=== PATIENT | male | born 1970 | race Caucasian/White ===

== ENCOUNTER 2017-12-01 22:54 | Emergency (ER) | payer SELFPAY ==
[2017-12-01 22:54] VITALS: BP 145/91; PULSE 100; RESP 18; TEMP 36.6; O2SAT 97; BMI 27.8
--- NOTE | 2017-12-01 23:07 | RAD_ITS ---
STUDY: X-RAY - RIGHT FOOT CLINICAL: Male, 47 years old. Fall, foot pain. TECHNIQUE: 3. view(s) of the foot. COMPARISON: None. FINDINGS: There is a comminuted, intra-articular fracture of the calcaneus extending to the superior articular surface. There is probable fracture line extending to the anterior articular surface (calcaneocuboid articulation). Fracture lines extend to the posterior and inferior calcaneal surfaces. Minimum of 4 fragments. There is flattening of Boehler's angle. Normal talus. Normal visualized talonavicular, tarsal and tarsometatarsal articulations. Normal metatarsi. Normal metatarsophalangeal joint of the great toe. Normal tibial and fibular sesamoid bones. Normal interphalangeal joint of the great toe. Normal phalanges of the great toe. Normal second through fifth metatarsophalangeal joints. Normal interphalangeal joints and phalanges of the lesser toes. The soft tissue structures are unremarkable. RAD/Foot min 3 Views IMPRESSION: 1. Comminuted calcaneal fracture. Consider CT of the calcaneus for detailed evaluation, as indicated by Orthopedics. Electronically Signed: Yoli Damian MD at 23:34 EDT Tel , Service support ,
--- NOTE | 2017-12-01 23:08 | ED.VISSUMM ---
- ER Visit Summary Date of Service: 12/01/17 Chief Complaint: Right lower extremity injury History of Present Illness: The patient is a 47 M patient strapping down kayak from [facility] when he lost his balance jumping down. States he is probably 6 feet up on the roof. Inversion injury to right lower extremity. No head injuries. But is drinking 4 beers. States maybe had a finger fracture in the past. No current PCP. No past medical history. Patient states unable to bear weight since incident. Physical Examination: General: Alert and oriented ?3, moderate distress HEENT: Normocephalic, atraumatic. Moist mucosa membranes Neck: supple, nontender. Cardiovascular: Regular rate and rhythm, no murmurs Respiratory: Normal breath sounds, symmetric, no distress Back: No midline back pain. Abdomen: Soft, nontender, nondistended Extremities: Right lower extremity: No knee tenderness. No medial malleolus tenderness. Swelling and tenderness lateral malleolus. Also swelling distal to the lateral malleolus. Skin is intact. No midfoot or proximal fifth base tenderness. No calcaneal heel tenderness. DP intact. Cap refill is intact. Decreased sensation dorsum of the foot with palpation per patient. Neuro: no focal neurological deficits. Test Results: Right ankle and foot x-ray: Comminuted calcaneal fracture. CT scan right lower extremity pending final read comminuted calcaneal fracture. CBC, BMP, coags pending. Emergency Department Course and Treatment: Patient declined IM or subcu medications initially. He is given 10 mg oxycodone and ice. X-ray confirms a comminuted calcaneal fracture. Reevaluation agreed with morphine subcu which 10 mg were given. I spoke with orthopedic on-call Dr. Murphy Coe, agreed with obtaining a CT scan and plan follow-up as an outpatient for likely referral to specialist for surgery since he does not perform this. Family has seen him in the past therefore requested him. This explained to the patient. After return from CT continued complaint of pain. Posterior splint was placed. However he pain has been persistent. IV place with labs drawn. Order for Dilaudid and Toradol. Re-spoke with orthopedic surgeon, states there is possibility of development of compartment syndrome in this area, he does not perform surgeries for this area. Discussed with family who would like to go to [facility]. I spoke with ED physician who up dated and accepts the transfer. Image studies will be sent with the patient. He will go to the emergency department. Family updated. He has no back pain for concerns of compression fractures in this area. Treatment Plan: [] Disposition: Transfer Impression: 1. Right calcaneal fracture closed 2. Intractable pain This note was generated with [employer] dictation software. It may contain incorrect words, spelling, and punctuation that were not noted in review of the chart prior to signing ED Disposition - Plan for ED Patient: Disposition: [facility] Chief Complaint: Lower Extremity Injury Diagnosis: Closed right calcaneal fracture, Intractable pain
[2017-12-01] MEDS: oxyCODONE 5 MG Tablet 10 MG PO (23:11)
--- NOTE | 2017-12-01 23:15 | RAD_ITS ---
STUDY: X-RAY - RIGHT ANKLE REASON FOR EXAM: Male, 47 years old. Fall, right foot pain. TECHNIQUE: 3 view(s) of the ankle. COMPARISON: None. FINDINGS: There is a comminuted, intra-articular fracture of the calcaneus extending to the superior articular surface. Fracture lines extend to the posterior and inferior calcaneal surfaces, with possible fracture line extending to the anterior articular surface. Tibiotalar and talofibular joints are intact. Talonavicular articulation is intact. The midfoot is otherwise unremarkable. Soft tissues are unremarkable. RAD/Ankle min 3 Views IMPRESSION: Comminuted calcaneal fracture. Electronically Signed: Yoli Damian MD at 23:30 EDT Tel , Service support ,
--- NOTE | 2017-12-01 23:53 | CT_ITS ---
STUDY: CT RIGHT FOOT REASON FOR EXAM: Male, 47 years old. Fall, calcaneal fracture RADIATION DOSAGE (If Supplied By Facility): CTDIvol = ( 15.35 ) mGy, DLP = ( 330.74 ) mGycm TECHNIQUE: Thin section transaxial imaging of the foot was obtained, with sagittal and coronal reconstructed images. Individualized dose optimization techniques were used for this CT. COMPARISON: Right foot films 12/01/2017 FINDINGS: Intact distal tibia-fibula/medial lateral malleolus. Intact talus dome and talus, cuboid, navicular and cuneiforms. Intact tarsometatarsal articulation.. Comminuted impacted fractures of the calcaneus involving the sustentaculum melba, lateral and posterior tuberosities, nondisplaced fracture through the calcaneal cuboid process. There is adjacent soft tissue swelling. CT/Extremity Lower without Contra IMPRESSION: Acute comminuted fracture of the calcaneus as above. Electronically Signed: Caren Thompson MD at 1:11 EDT , Service support ,
[2017-12-02] MEDS: morphine 10 MG/ML Syringe SC (00:04)
[2017-12-02] MEDS: Ketorolac 30 MG/ML Syringe IV (00:54)
[2017-12-02 01:19] LABS: Absolute Lymphocyte Count 3.22 X10^3/ul (0.83-4.51); Basophil# 0.12 X10^3/uL; Basophil% 0.7 % (0-1); Eosinophils% 1.7 % (0-5); Hematocrit 39.7 % (40-54); Hemoglobin 13.8 g/dl (13.0-16.5); Lymphocyte # 3.22 X10^3/ul (4.0); Lymphocyte % 17.8 % (19-41); Mean Corp Hgb Conc 34.8 g/gl (32-36); Mean Corpuscular Hgb 31.3 pg (27.0-32.0); Mean Platelet Vol. 10.6 fl (6.2-12.0); Monocyte% 7.7 % (0-10); Neutrophil # 12.98 X10^3/uL (2.7-7.7); Neutrophil % 71.6 % (47-70); Platelet Count 295 K/mm3 (150-450); RBC Distribution Width CV 12.6 % (11.6-14.6); RBC Distribution Width SD 41.2 fl (35.1-43.9); Red Blood Count 4.41 M/mm3 (4.6-6.2); White Blood Count 18.1 K/mm3 (4.4-11.0)
[2017-12-02 01:20] LABS: POSITIVE COUNT NO; POSITIVE DIFFERENTIAL NO; POSITIVE MORPHOLOGY NO
[2017-12-02] MEDS: HYDROmorphone 1 MG/ML Syringe IV (01:21)
[2017-12-02 01:27] LABS: Prothrombin Time (Protime)PT. 13.3 SECONDS (11.7-14.9)
[2017-12-02 01:28] LABS: Partial Thromboplast Time 23.5 Seconds (24.1-36.2)
[2017-12-02 01:31] LABS: Anion Gap 12 (5-15); BUN 16 mg/dL (7-18); BUN/Creat Ratio 15.4 RATIO (10-20); Calcium,Total 8.7 mg/dL (8.5-10.1); Chloride 105 mmol/L (98-107); Creatinine, Serum 1.04 mg/dL (0.70-1.30); EST Glomerular Filtration Rate 81 mL/min (>60); Est Glom Filt Rate - Afr Amer 98 mL/min (>60); Estimated Creatinine Clearance 100.99 ml/min; Glucose 119 mg/dL (74-106); Potassium 3.6 mmol/L (3.5-5.1); Sodium Level 138 mmol/L (136-145)
== END 2017-12-02 01:45 | disposition short-term general hospital (02) ==
PROVIDERS: Emergency Provider Emergency Medicine
DX: S92.061A Displaced intraarticular fracture of right calcaneus, initial encounter for closed fracture (principal); W17.89XA Other fall from one level to another, initial encounter; Y93.9 Activity, unspecified; Y92.9 Unspecified place or not applicable; Y99.9 Unspecified external cause status
CPT/HCPCS: 29515; 73610; 73630; 73700; 80048; 85025; 85610; 85730; 96372; 96374; 96375; 99284; A4216

== ENCOUNTER → 2018-06-20 15:53 | Outpatient (CLI) | payer MEDICAID, SELFPAY | PROVIDERS: Referring Provider Otolaryngology Otolaryngology/Facial Plastic Surgery; Visit Provider Otolaryngology Otolaryngology/Facial Plastic Surgery | DX: J32.9 Chronic sinusitis, unspecified (principal) | CPT/HCPCS: 87070; 87205 ==

== ENCOUNTER → 2018-07-03 14:09 | Outpatient (CLI) | payer MEDICAID, SELFPAY ==
--- NOTE | 2018-07-03 14:14 | CT_ITS ---
STUDY: CT PARANASAL SINUSES WITH CONTRAST REASON FOR EXAM: Male, 47 years old. Sinusitis. RADIATION DOSAGE (If Supplied By Facility): CTDIvol = ( 33.45 ) mGy, DLP = ( 834.91 ) mGycm TECHNIQUE: The patient was scanned in a multi-detector CT scanner. High resolution transaxial imaging was performed following the intravenous administration of . Sagittal and coronal images were reconstructed. Individualized dose optimization techniques were used for this CT. COMPARISON: None. FINDINGS: FRONTAL SINUSES: Severe mucosal thickening with near total opacification of the left frontal sinus. ETHMOIDAL SINUSES: Moderate left and mild right ethmoid sinus mucosal thickening. MAXILLARY SINUSES: Severe mucosal thickening with near total opacification of the right total opacification of the left maxillary sinus. Portions of the medial wall of the left maxillary sinus are not well visualized which may be secondary to resorption. The maxillary sinus is not expanded. SPHENOIDAL SINUSES: Minimal right sphenoid sinus mucosal thickening. OMU: Occlusion of the ostiomeatal complexes bilaterally. Mild deviation of the nasal septum to the right. Mild deformity anterior right nasal bones which may be secondary to an old fracture. MIDDLE TURBINATES: Normal bilateral middle turbinates without a smiley bullosa or paradoxical curvature. INFERIOR TURBINATES: Normal bilateral inferior turbinates. NASAL SEPTUM: Normal midline nasal septum and there is no nasal septal mass lesions, deviation or spur. Normal anterior cranial fossa, manoj paige and cribriform plate. Normal bilateral orbital contents. Normal nasopharynx without adenoidal pad hypertrophy, or a posterior nasopharyngeal retention cyst. There is no demonstrated enhancing soft tissue or osseous abnormality. Borderline enlarged right deep cervical lymph node. IMPRESSION: Severe left frontal and bilateral maxillary sinus mucosal thickening with lesser involvement of the ethmoid and right sphenoid sinuses. Occlusion of the ostial meatal complexes. No air-fluid levels. Electronically Signed: Kevin Morgan MD at 1:39 EDT , Service support , STUDY: CT BRAIN WITH CONTRAST REASON FOR EXAM: Male, 47 years old. Sinusitis. RADIATION DOSAGE (If Supplied By Facility): CTDIvol = ( 33.45 ) mGy, DLP = ( 834.91 ) mGycm TECHNIQUE: Transaxial CT imaging of the brain was performed post contrast administration. The examination was performed with intravenous administration of . Individualized dose optimization techniques were used for this CT. COMPARISON: None. FINDINGS: Normal soft tissue structures. Normal calvarium. Normal size ventricles and extra-axial spaces for the patient's age. Normal white matter tracts of the cerebral hemispheres. Normal basal ganglia and thalami. Normal brainstem. Normal cerebellum. Along the lateral aspect right temporal lobe is an ovoid, slightly lobulated, increased attenuation mass measuring 2.6 x 3.0 x 1.0 cm cm in the craniocaudad, AP and transverse dimensions respectively coronal image 99, sagittal image 20 and axial image 123 series 2. No surrounding edema. No bony resorption. There is no intracranial hemorrhage. There are no findings of an acute ischemic infarction. A portion of the posterior occipital lobes and occipital skull not included on the study due to patient positioning. Severe left frontal and bilateral maxillary sinus mucosal thickening. Mild to moderate ethmoid and mild right sphenoid sinus mucosal thickening. CT/Sinus/Facial Bone IMPRESSION: Peripheral right temporal lobe mass. Recommend correlation with MRI with and without intravenous contrast. Severe left frontal and bilateral maxillary sinus disease. Portion of the posterior occipital lobes and adjacent occipital bone not included on the study. Electronically Signed: Kevin Morgan MD at 2:07 EDT , Service support ,
== END ==
PROVIDERS: Referring Provider Otolaryngology Otolaryngology/Facial Plastic Surgery; Visit Provider Otolaryngology Otolaryngology/Facial Plastic Surgery
DX: J32.9 Chronic sinusitis, unspecified (principal)
CPT/HCPCS: 70486

== ENCOUNTER 2018-08-20 12:19 | Day surgery (SDC) | payer MEDICAID, SELFPAY ==
--- NOTE | 2018-08-15 11:26 | EKG12_ITS ---
Test Reason : PRE OP Blood Pressure : / mmHG Vent. Rate : 065 BPM Atrial Rate : 065 BPM P-R Int : 150 ms QRS Dur : 078 ms QT Int : 390 ms P-R-T Axes : 064 026 047 degrees QTc Int : 405 ms Normal sinus rhythm with sinus arrhythmia Normal ECG No previous ECGs available Confirmed by MARIO ESTEVEZ, BRUNO ([id number]), technical editor LEX MAURICE ([id number] on 08/20/2018 2:29:55 PM Referred By: Neto Leslie Confirmed By:BRUNO MARTIN MD
[2018-08-15 11:43] LABS: Hematocrit 43.8 % (40-54); Hemoglobin 14.8 g/dl (13.0-16.5); Mean Corp Hgb Conc 33.8 g/gl (32-36); Mean Corpuscular Hgb 30.3 pg (27.0-32.0); Mean Corpuscular Volume 89.6 fL (80-94); Mean Platelet Vol. 10.4 fl (6.2-12.0); Platelet Count 254 K/mm3 (150-450); RBC Distribution Width CV 13.3 % (11.6-14.6); RBC Distribution Width SD 43.4 fl (35.1-43.9); Red Blood Count 4.89 M/mm3 (4.6-6.2); White Blood Count 7.3 K/mm3 (4.4-11.0)
[2018-08-15 11:45] LABS: Scan Indicated on CBC? Y/N NO
[2018-08-20 13:15] VITALS: BP 157/97; PULSE 54; RESP 16; TEMP 36.6; O2SAT 99; BMI 27.4
[2018-08-20] MEDS: Oxymetazoline 0.05% 1 SPRAY SPRAY.BTL 3 SPRAY NASAL (13:24)
[2018-08-20 13:33] LABS: Anion Gap 9 (5-15); BUN 16 mg/dL (7-18); BUN/Creat Ratio 16.9 RATIO (10-20); Calcium,Total 8.6 mg/dL (8.5-10.1); Chloride 105 mmol/L (98-107); Creatinine, Serum 0.95 mg/dL (0.70-1.30); EST Glomerular Filtration Rate 90 mL/min (>60); Est Glom Filt Rate - Afr Amer 109 mL/min (>60); Estimated Creatinine Clearance 110.56 ml/min; Glucose 102 mg/dL (74-106); Sodium Level 141 mmol/L (136-145)
--- NOTE | 2018-08-20 13:51 | PCM.DC ---
You will use the following diet at home:: Regular Discharge Activity: Return to Normal Activity Additional Activity Instructions:: No nose blowing. Start saline irrigation on 08/21/18. Irrigate 4x/day. Allergies/Adverse Reactions: Allergies No Known Allergies Allergy (Verified 08/09/18 13:04) Medications to take at Discharge Fluticasone 0.05% [Flonase Nasal [place]] 2 spray NASAL DAILY 08/09/18 Smz/Tmp Ds [Bactrim Ds] 1 tablet PO BID 08/09/18 Orders to be completed after discharge: 12 Lead EKG [[facility]] Time Frame: 08/09/18, Facility: [facility], Location: Cardiovascular Services Primary Care Physician: Care Physician,No Primary [Primary Care Provider] - Test Results: Test results from this visit will be discussed in further detail at your follow-up appointment, if applicable.
--- NOTE | 2018-08-20 14:05 | ETH_PTH ---
PATIENT: DONNA EGAN LOC: [facility] [place] [facility] [place] U#:[id number] AGE/SX: 47/M ROOM: RE08/20/[address]: Dr. Neto Leslie MD : 1970 BED: DIS: 08/20/2018 SPEC #: [id number] RECD: 08/21/18 13:03 STATUS: TONG YO #: [id number] AMELIE: 08/20/18 14:[address]: Neto Leslie DEPT: SURGICAL PATHOLOGY RECD BY: Nakita Hansen ENTERED: 08/21/18 13:42 SP TYPE: ETH TISS OTHR DR: No Primary Care Phys Tissues: A - Ethmoid sinus, NOS B - Ethmoid sinus, NOS Procedures: Decalcification bone/plaque Surgery Specimen Level III HEADER OPERATION: Intranasal endoscopic frontal sinusotomy, maxillary antrostomy PRE-OP DIAGNOSIS: Chronic sinusitis TISSUE SUBMITTED: A. Right maxillary and ethmoid sinus contents, B. Left maxillary and ethmoid sinus contents MICROSCOPIC DIAGNOSIS A. Right maxillary and ethmoid sinus contents, excision: Consistent with chronic sinusitis. Fragments of bone with no pathologic change. B. Left maxillary and ethmoid sinus contents, excision: Consistent with chronic sinusitis. Fragments of bone with no pathologic change. AM:paula 08/24/18 MICROSCOPIC DESCRIPTION Slides are reviewed. GROSS DESCRIPTION A - Received in fixative is one container labeled with the patient's name and designated right maxillary and ethmoid sinus contents. The specimen consists of multiple irregular fragments of warren soft tissue mixed with possible fragments of bone that in aggregate measure 3 x 2.5 x 0.3 cm. The entire specimen is submitted in one cassette after decalcification. B - Received in fixative is one container labeled with the patient's name and designated left maxillary and ethmoid sinus contents. The specimen consists of multiple irregular fragments of pink hemorrhagic soft tissue mixed with fragments of bone that in aggregate measure 5 x 3 x 0.3 cm. The entire specimen is submitted in two cassettes after decalcification. / SJ:paula 08/21/18 TC:5 CPT: 33090 x2, 28531 x2
[2018-08-20] MEDS: Oxymetazoline 0.05% 1 SPRAY SPRAY.BTL 15 SPRAY (14:40)
[2018-08-20 16:09] VITALS: BP 153/93; BP 157/97; PULSE 60; RESP 16; TEMP 36.4; O2SAT 100
[2018-08-20 16:10] VITALS: BP 149/98; BP 157/97; PULSE 60; RESP 18; O2SAT 98
--- NOTE | 2018-08-20 16:15 | PCM.OPRPT ---
Report of Operation Date of Procedure: 08/20/18 Pre-Operative Diagnosis: chronic sinusitis Surgery/Procedure Performed:: Bilateral total ethmoidectomy. Bilateral maxillary antrostomy. Bilateral frontal sinusotomy with balloon dilation. Use of navigation Description of Surgical Findings:: multiple polyps left greater than right. Pus in the left maxillary and left frontal sinus. Type of Anesthesia:: General Anesthesiologist: Josh Blancas Specimen's removed: sinus contents Estimated Blood Loss (mL): 400 cc Description of Procedure: The patient was taken to the OR on 08/20/18. He was placed in the supine position on the OR table. He was given sufficient general anesthesia. The head of bed was elevated 30 degrees. The navigation system was placed on the patient. He was draped steriley. The navigation was registered per protocol. A zero degree rigid nasal endoscope was used throughout the entire case. I injected 1% lidocaine with epinephrine into the polyps, middle turbinate and uncinate process bilaterally. The left middle turbinate was medialized with a freer elevator. Polyp was removed from the surface of the middle turbinate and middle meatus with a microdebrider. I was then able to see the uncinate. A ball tipped sinus seeker was placed in the maxillary sinus. There was immediate extrusion of pus. A back biter was used to create an antrostomy. Pus was suctioned from the maxillary sinus. The uncinate was removed with a sinus shaver. I then opened the ethmoid bulla with a curette. Diseased, polypoid tissue was removed from the ethmoid with a Blakesly Uri forcep and sinus shaver. The navigation was used to ensure that only the ethmoid was entered. I placed the balloon light guide into the frontal sinus and saw immediate transillumination over the left frontal sinus. The balloon was dilated and then removed. Hemostasis was achieved with afrin pledgets and [place]. I then medialized the right middle turbinate. I placed the balloon light guide into the frontal sinus and saw immediate transillumination over the right frontal sinus. The balloon was dilated and then removed. A ball tipped sinus seeker was placed in the maxillary sinus. A back biter was used to create an antrostomy. I took down the uncinate with a sinus shaver. I then opened the ethmoid bulla with a curette. Tissue was removed from the ethmoid with a Blakesly Uri forcep and sinus shaver. The navigation was used to ensure that only the ethmoid was entered. Hemostasis was achieved with afrin pledgets and Wellington. The patient was then awoken and brought to the recovery room in stable condition. Blood loss 400 cc, replacement none. Sponge, needle and instrument count were correct at the end of the procedure.
[2018-08-20 16:26] VITALS: BP 149/96; BP 157/97; PULSE 55; RESP 18; TEMP 36.2
[2018-08-20] MEDS: HYDROcodone Bitartrate/Apap 5/325 Tablet PO (16:54)
[2018-08-20 16:55] VITALS: BP 157/97
== END 2018-08-20 17:05 | disposition home or self-care (01) ==
LOC: SDC 12:20 → AC 13:13
PROVIDERS: Anesthesiology; Referring Provider Otolaryngology; Visit Provider Otolaryngology
PROC: (CPT 31253; principal; 2018-08-20 13:50)
DX: J32.9 Chronic sinusitis, unspecified (principal); F17.200 Nicotine dependence, unspecified, uncomplicated
CPT/HCPCS: 31253; 31267; 36415; 80048; 85027; 88304; 88305; 88311; 93005; J7120; J2405